=== PATIENT | female | born 2000 | race Caucasian/White ===

== ENCOUNTER 2025-05-31 04:56 | Emergency (ER) | payer OTHER, SELFPAY ==
[2025-05-31 04:57] VITALS: BP 112/78
--- NOTE | 2025-05-31 05:02 | ED.GENMED ---
History of Present Illness
General
Chief Complaint: Abdominal Pain
Source: patient
Exam Limitations: none
Time Seen by Provider: 05/31/25 05:02
Nursing documentation reviewed up to this point in time: agreed with
History of Present Illness
History of Present Illness:
This is a 24 y/o female with no pmh who presents to the ER today with concerns of sudden onset of right sided abdominal pain started at around 3 am this morning. She had one associated episode of vomiting. Patient reports that the pain awoke her
from sleep. She was feeling well prior to going to bed. She had chicken pot pie for dinner which she was able to eat without any difficulty. She has no hx of prior symptoms. Her LMP was one week ago. She denies any flank pain, urinary frequency,
burning with urination, urinary urgency. She denies any fevers, chills, chest pain, shortness of breath, sick contacts, diarrhea, constipation, recent travel outside the country.
Review of Systems
Review of Systems
All Other Systems: ROS reviewed and negative except as documented in HPI and ROS
Phy Exam
General Physical Exam
General Presentation: well appearing
General age: appears stated age
General Skin: warm and dry
General Habitus: normal
General Mental: alert
General Hydration: appears well hydrated
ENT Exam
ENT Exam: EOMI
Cardiovascular Exam
Cardiovascular Exam: regular rate/rhythm and no murmur
Pulmonary Exam
Pulmonary Exam: lungs clear, no respiratory distress, no crackles and no wheezing
Gastrointestinal Exam
Gastrointestinal Exam: normal bowel sounds, soft, non distended and no cva tenderness
Palpation: left upper quadrant: No tenderness, left lower quadrant: Minimal tenderness, right upper quadrant: No tenderness and right lower quadrant: Moderate tenderness
Auscultation of Abdomen: normal
Neurological Exam
Neurological Exam: alert, oriented x3 and CN II-XII intact
Skin Exam
Skin Exam: normal color and warm/dry
Psychiatric Exam
Psychiatric Exam: normal mood/affect
Course
Orders/Labs/Results
Orders:
Orders
05/31/25 05:18
CT Abd/Pel (IV only)-DH only Urgent
Reason For Exam: RLQ pain
Test Result ONCE
05/31/25 05:19
Ondansetron Injectable [Zofran] 4 mg .ROUTE .STK-MED ONE
05/31/25 05:27
Complete Blood Count/With Diff Urgent
Comprehensive Metabolic Panel Urgent
HCG, Serum Qualitative Screen Urgent
Urinalysis Reflex To Culture Urgent
Date Specimen was Collected: 05/31/25
Time Specimen was Collected: 05:21
Urine Microscopic Reflex Cult Urgent
Urine Culture Urgent
CRISTOBAL Source: U
Specimen Description:
Date Specimen was Collected: 05/31/25
Time Specimen was Collected: 05:21
05/31/25 05:28
Ondansetron Injectable [Zofran] 4 mg IV NOW STA
05/31/25 05:31
Ketorolac [Toradol] 15 mg .ROUTE .STK-MED ONE
05/31/25 05:32
Ketorolac [Toradol] 15 mg IV NOW STA
05/31/25 06:35
HYDROmorphone [Dilaudid] 0.5 mg IV NOW STA
05/31/25 06:36
HYDROmorphone [Dilaudid] 0.5 mg .ROUTE .STK-MED ONE
Abnormal Lab Results
05/31/25
05:27
WBC 12.9 H 10^3/uL
(4.8-10.8)
MPV 10.8 H fL
(7.4-10.4)
Abs Immat Gran (auto) 0.1 H 10^3/uL
(0-0.05)
Absolute Neuts (auto) 9.9 H 10^3/uL
(1.4-6.5)
Neutrophils % 76.7 H %
(42.2-75.2)
Lymphocytes % 17.6 L %
(20.5-51.1)
Chloride 109 H mmol/L
(98-107)
BUN 18 H mg/dl
(7-17)
Glucose 134 H mg/dl
(70-99)
Ur Occult Blood Reflex 4+ A
(Negative)
Leukocyte Esterase Rfl 2+ A
(Negative)
Urine RBC 80-90 A /HPF
(0-2)
Urine WBC (Reflex) 11-15 A /HPF
(0-5)
Urine Bacteria (Reflex) Few A
(Negative)
Urine Albumin (Reflex) 2+ A
(Neg - Trace)
05/31/25 05:27
05/31/25 05:27
Vital Signs
Initial and Last Documented VS:
Initial Vital Signs
Pulse Resp BP Pulse Ox
70 24 112/78 100
05/31/25 04:57 05/31/25 04:57 05/31/25 04:57 05/31/25 04:57
Last Documented Vital Signs
Pulse Resp BP Pulse Ox
70 24 120/72 100
05/31/25 04:57 05/31/25 04:57 05/31/25 07:00 05/31/25 07:45
MDM/Problems Addressed
Differential Diagnosis Includes:
ddx include appendicitis, colitis, gastroenteritis, nephrolithiasis
MDM/Problems Addressed:
This is a 24 y/o female with no pmh who presents to the ER today with concerns of sudden onset of right sided abdominal pain started at around 3 am this morning. She associated vomiting as well. She has no history of urinary symptoms with this
illness. On physical exam she is well-appearing nontoxic-appearing, tearful secondary to pain. Pain relief achieved with Toradol and Dilaudid. Labs reviewed, mild leukocytosis noted, mildly elevated glucose. Urinalysis shows occult blood and
white blood cells culture sent. CT scan shows obstructing stone in the right proximal ureter. Discussed home management with pain control and urology follow-up. Discussed strict return precaution and when to return to the ER immediately such as
UTI symptoms, fevers, etc. Patient stable for discharge.
*Pulse Oximetry
SaO2: 100
Oxygen Mode of Delivery: Room air
Patient hypoxic: no
*Critical Care Note
Total Time (30-74mins, 75-104mins- exclusive of procedures): Not Applicable
Update Note
Update Note:
Update, 6:37 AM, patient states that her pain is worsening and patient is tearful, will give dose of Dilaudid, CT scan results pending
ED Attending Note
-
Portions of this chart may have been created with voice recognition software.� Occasional wrong word or��sound alike� substitutions may have occurred due to the inherent limitations of voice recognition software.
Discharge Plan
Departure
Patient Disposition: Home (Routine Discharge)
Date of Disposition: 05/31/25
Time of Disposition: 07:46
Patient with high blood pressure during this ER visit?: No
Condition: Good
Discharge Problem:
Calculus of proximal right ureter
Instructions: Kidney stones in adults, BLOOD PRESSURE
Prescriptions:
New
tamsulosin [Flomax] 0.4 mg capsule
0.4 mg PO DAILY Qty: 5 0RF
ibuprofen 800 mg tablet
800 mg PO Q6H PRN (Reason: Pain) Qty: 14 0RF
ondansetron 4 mg tablet,disintegrating
4 mg PO Q6H PRN (Reason: nausea and vomiting) Qty: 8 0RF
Referrals:
Shane March MD [Active, Urology] - Call in 1-3 days for appt
Sho Pierre MD [Family Provider, Family Practice]
Activity Restrictions/Additional Instructions:
As discussed, please follow-up with your CT scan findings regarding your liver.
You can take 800 mg ibuprofen every 6 hours as needed for pain. Please not exceed 3200 mg/day. You can also take Zofran every 6 hours as needed. May also take 1 tablet of Flomax once daily until stone passage.
Please call the attached number to schedule appointment with urology for follow-up.
PLEASE RETURN TO THE ER IMMEDIATELY SHOULD YOU DEVELOP FEVERS, CHILLS, INCREASING PAIN, BURNING WITH URINATION, PELVIC PAIN, OR ANY OTHER SIGNS OR SYMPTOMS RECENTLY.
Interventions
Interventions:
*Risk Screen - Suicide Last Done: 05/31/25 07:59
*General Assessment Last Done: 05/31/25 05:33
*Neglect/Abuse Screening Last Done: 05/31/25 05:33
*ED- Fall Risk Assessment Last Done: 05/31/25 05:33
*ED COVID-19 Vaccine History Last Done: 05/31/25 05:33
*ED Influenza Vaccine History Last Done: 05/31/25 05:33
*Nursing Disposition Last Done: 05/31/25 07:59
IN-Ygmkol-Hwldlduykk Assessment Last Done: 05/31/25 05:51
Discharge Date and Time
Discharge Date/Time: 05/31/25 07:56
Print Language: SALVADOREAN
[2025-05-31] MEDS: ZOFRAN 4 MG IV (05:28)
[2025-05-31] MEDS: TORADOL 15 MG IV (05:32)
[2025-05-31 05:35] VITALS: BMI 22.8
[2025-05-31 05:39] LABS: Hematocrit 41.4 % (37.0-47.0); Hemoglobin 13.7 g/dL (12.0-16.0); Mean Corp Hgb Conc. 33.1 g/dL (33.0-37.0); Mean Corpuscular Volume 89.6 fL (81.0-99.0); Nucleated Red Blood Cells % 0 %; Platelet Count 220 10^3/uL (130-400); Red Cell Dist. Width 11.8 % (11.5-14.5)
[2025-05-31 05:48] LABS: HCG, Serum Qualitative Screen Negative
[2025-05-31 05:52] LABS: ALT (SGPT) 20 U/L (0-35); AST (SGOT) 23 U/L (14-36); Albumin 4.0 g/dl (3.5-5.0); Alkaline Phosphatase 42 U/L (38-126); Blood Urea Nitrogen 18 mg/dl (7-17); Calcium 8.6 mg/dl (8.4-10.2); Carbon Dioxide 24 mmol/L (22-30); Chloride 109 mmol/L (98-107); Estimated Creatinine Clearance 96 ml/min; Glucose 134 mg/dl (70-99); Potassium 4.4 mmol/L (3.5-5.1); Sodium 138 mmol/L (135-145); Total Protein 6.5 g/dl (6.3-8.2); eGFR > 60.00
[2025-05-31 06:23] LABS: Urine Character Clear (Clear)
[2025-05-31] MEDS: DILAUDID 0.5 MG IV (06:38)
[2025-05-31 06:41] VITALS: BP 123/83
[2025-05-31 07:00] VITALS: BP 120/72
[2025-05-31 07:33] LABS: Urine Red Blood Cell 80-90 /HPF (0-2)
== END 2025-05-31 07:56 | disposition home or self-care (01) ==
LOC: EMR 04:56
PROVIDERS: Physician Assistant; EMERGENCY PHYSICIAN Student in an Organized Health Care Education/Training Program; FAMILY PHYSICIAN Family Medicine
DX: N13.2 Hydronephrosis with renal and ureteral calculous obstruction (principal); R11.10 Vomiting, unspecified
CPT/HCPCS: 99284; 96374; 96375; 74177; 80053; 81003; 81015; 84703; 85025; 87086; Q9967

== ENCOUNTER → 2025-07-05 15:15 | Outpatient (REF) | payer OTHER, SELFPAY | LOC: RAD 15:15 | PROVIDERS: ATTENDING PHYSICIAN Specialist; FAMILY PHYSICIAN Family Medicine | DX: N20.1 Calculus of ureter (principal) | CPT/HCPCS: 76770 ==

== ENCOUNTER 2025-07-26 11:22 | Emergency (ER) | payer OTHER, SELFPAY ==
[2025-07-26 11:32] VITALS: BP 137/67
[2025-07-26 11:53] LABS: Hematocrit 41.8 % (37.0-47.0); Hemoglobin 13.9 g/dL (12.0-16.0); Mean Corp Hgb Conc. 33.3 g/dL (33.0-37.0); Mean Corpuscular Volume 89.7 fL (81.0-99.0); Nucleated Red Blood Cells % 0 %; Platelet Count 230 10^3/uL (130-400); Red Cell Dist. Width 11.6 % (11.5-14.5)
[2025-07-26 12:06] LABS: Urine Character Clear (Clear)
[2025-07-26 12:21] LABS: ALT (SGPT) 18 U/L (0-35); AST (SGOT) 27 U/L (14-36); Albumin 4.4 g/dl (3.5-5.0); Alkaline Phosphatase 49 U/L (38-126); Blood Urea Nitrogen 14 mg/dl (7-17); Calcium 9.4 mg/dl (8.4-10.2); Carbon Dioxide 26 mmol/L (22-30); Chloride 106 mmol/L (98-107); Glucose 85 mg/dl (70-99); Sodium 138 mmol/L (135-145); Total Protein 7.1 g/dl (6.3-8.2); eGFR > 60.00
[2025-07-26 12:30] LABS: Potassium 5.0 mmol/L (3.5-5.1)
[2025-07-26 12:59] LABS: HCG, Serum Qualitative Screen Negative
[2025-07-26] MEDS: NSS 1000 IV (13:02)
[2025-07-26] MEDS: TORADOL 15 MG IV (13:03)
--- NOTE | 2025-07-26 13:03 | ED.GENMED ---
History of Present Illness
<Georgi Cloud Jr., PA-C - Last Filed: 07/28/25 23:11>
General
Chief Complaint: Flank Pain
Source: patient
Exam Limitations: none
Time Seen by Provider: 07/26/25 12:49
Nursing documentation reviewed up to this point in time: agreed with
History of Present Illness
History of Present Illness:
24-year-old female presenting to the emergency department today with concerns of right flank pain described as severe just prior to arrival. Was diagnosed with a kidney stone 2 months ago is unsure if this ever passed. She was initially using the
strainer and Flomax but stopped a few weeks after the initial diagnosis. She was also diagnosed with a UTI 2 weeks ago and took amoxicillin for a week and seem to have resolution of symptoms again. She then was in further discussion with urology,
Dr. Russ the recommended an outpatient CT scan for further assessment to ensure passage of the stone which was scheduled for later this week but symptoms were worsened today which prompted her to come to the ER. She denies any fevers nausea
vomiting.
Review of Systems
<Georgi Cloud Jr., PA-C - Last Filed: 07/28/25 23:11>
Review of Systems
Allergies reviewed?: Yes
All Other Systems: ROS reviewed and negative except as documented in HPI and ROS
Phy Exam
<Georgi Cloud Jr., PA-C - Last Filed: 07/28/25 23:11>
Physical Exam
Physical Exam:
GENERAL: Alert , in no apparent distress
EYE: pupils equal and reactive
NECK: Supple, no significant adenopathy.
ENT: o/p clr, mmm.
CARDIAC: Regular rate and rhythm .
LUNGS: Clear breath sounds bilaterally, no acute respiratory distress, no wheezes/rales/rhonchi
ABDOMEN: Soft, without focal tenderness, no r/g, no cvat
NEUROLOGICAL: Alert and oriented, no focal neuro deficits
SKIN: Warm and dry, skin intact.
MUSCULOSKELETAL: No edema, well perfused.
PSYCH: Normal and appropriate interaction.
Course
<Georgi Cloud Jr., PA-C - Last Filed: 07/28/25 23:11>
Orders/Labs/Results
Orders:
Orders
07/26/25 11:28
CT Abd/pel Without Iv Or Oral Urgent
Comment: known kidney stone
Reason For Exam: right flank pain
Test Result ONCE
07/26/25 11:43
CMP [Comprehensive Metabolic Panel] Urgent
Complete Blood Count/With Diff Urgent
HCG, Serum Qualitative Screen Urgent
07/26/25 11:47
Urinalysis Reflex To Culture Urgent
Date Specimen was Collected: 07/26/25
Time Specimen was Collected: 11:37
Urine Microscopic Reflex Cult Urgent
Urine Culture Urgent
CRISTOBAL Source: U
Specimen Description:
Date Specimen was Collected: 07/26/25
Time Specimen was Collected: 11:37
07/26/25 12:54
0.9% Sodium Chloride 1000 ml [Nss] 1,000 ml IV BOLUS
Ketorolac [Toradol] 15 mg IV NOW STA
Abnormal Lab Results
07/26/25 07/26/25
11:43 11:47
MPV 11.3 H fL
(7.4-10.4)
Ur Occult Blood Reflex 4+ A
(Negative)
Leukocyte Esterase Rfl 1+ A
(Negative)
Urine RBC 7-10 A /HPF
(0-2)
Urine Bacteria (Reflex) Few A
(Negative)
Urine Albumin (Reflex) 2+ A
(Neg - Trace)
07/26/25 11:43
07/26/25 11:43
Vital Signs
Initial and Last Documented VS:
Initial Vital Signs
Temp Pulse Resp BP Pulse Ox
98.3 F 88 18 137/67 99
07/26/25 11:32 07/26/25 11:32 07/26/25 11:32 07/26/25 11:32 07/26/25 11:32
Last Documented Vital Signs
Temp Pulse Resp BP Pulse Ox
98.3 F 77 16 130/79 100
07/26/25 11:32 07/26/25 15:32 07/26/25 15:32 07/26/25 15:32 07/26/25 15:32
<Jolanta Hagan PA-C - Last Filed: 07/28/25 11:47>
Orders/Labs/Results
Orders:
Orders
07/26/25 11:28
CT Abd/pel Without Iv Or Oral Urgent
Comment: known kidney stone
Reason For Exam: right flank pain
Test Result ONCE
07/26/25 11:43
CMP [Comprehensive Metabolic Panel] Urgent
Complete Blood Count/With Diff Urgent
HCG, Serum Qualitative Screen Urgent
07/26/25 11:47
Urinalysis Reflex To Culture Urgent
Date Specimen was Collected: 07/26/25
Time Specimen was Collected: 11:37
Urine Microscopic Reflex Cult Urgent
Urine Culture Urgent
CRISTOBAL Source: U
Specimen Description:
Date Specimen was Collected: 07/26/25
Time Specimen was Collected: 11:37
07/26/25 12:54
0.9% Sodium Chloride 1000 ml [Nss] 1,000 ml IV BOLUS
Ketorolac [Toradol] 15 mg IV NOW STA
Abnormal Lab Results
07/26/25 07/26/25
11:43 11:47
MPV 11.3 H fL
(7.4-10.4)
Ur Occult Blood Reflex 4+ A
(Negative)
Leukocyte Esterase Rfl 1+ A
(Negative)
Urine RBC 7-10 A /HPF
(0-2)
Urine Bacteria (Reflex) Few A
(Negative)
Urine Albumin (Reflex) 2+ A
(Neg - Trace)
07/26/25 11:43
07/26/25 11:43
Vital Signs
Initial and Last Documented VS:
Initial Vital Signs
Temp Pulse Resp BP Pulse Ox
98.3 F 88 18 137/67 99
07/26/25 11:32 07/26/25 11:32 07/26/25 11:32 07/26/25 11:32 07/26/25 11:32
Last Documented Vital Signs
Temp Pulse Resp BP Pulse Ox
98.3 F 77 16 130/79 100
07/26/25 11:32 07/26/25 15:32 07/26/25 15:32 07/26/25 15:32 07/26/25 15:32
<Georgi Cloud Jr., PA-C - Last Filed: 07/28/25 23:11>
MDM/Problems Addressed
MDM/Problems Addressed:
24-year-old female presenting to the emergency department today with concerns of right flank pain described as sharp and acute today. Has improved somewhat prior to my assessment. Recent history of kidney stone as well as infection. CT scan
showing distal 5 mm stone. Case discussed with urology recommending close outpatient follow-up. Return precautions given.
<Georgi Cloud Jr., PA-C - Last Filed: 07/28/25 23:11>
*Pulse Oximetry
SaO2: 99
Oxygen Mode of Delivery: Room air
Patient hypoxic: no (99)
*Critical Care Note
Total Time (30-74mins, 75-104mins- exclusive of procedures): Not Applicable
<Jolanta Hagan PA-C - Last Filed: 07/28/25 11:47>
Update Note
Update Note:
07/28/2025 1147 AM
I called patient regarding her strep Adaline TA urine culture. Patient has a known kidney stone and does not believe she has passed it. She has not had a urologist appointment yet. She has not been able to pick up man the tamsulosin yet. I did
resend that to the pharmacy. She had a round of amoxicillin about 2 weeks ago which did treat some urinary tract infection symptoms but she still having very mild discomfort. Given this I will give her another round of antibiotics Augmentin this
time and recommend that she closely follow-up with urology, return precautions were given. Patient is not having any systemic symptoms or signs of pyelo-
ED Attending Note
<Georgi Cloud Jr., ANGELY - Last Filed: 07/28/25 23:11>
-
Portions of this chart may have been created with voice recognition software.� Occasional wrong word or��sound alike� substitutions may have occurred due to the inherent limitations of voice recognition software.
Discharge Plan
Departure
Patient Disposition: Home (Routine Discharge)
Date of Disposition: 07/26/25
Time of Disposition: 15:16
Patient with high blood pressure during this ER visit?: No
Condition: Good
Covid-19: Not Applicable
Discharge Problem:
Calculus, ureteral
Instructions: Renal Colic (DC)
Prescriptions:
New
tamsulosin 0.4 mg capsule
0.4 mg PO DAILY Qty: 10 0RF
amoxicillin-pot clavulanate 875-125 mg tablet
1 tab PO BID Qty: 14 0RF
No Action
tamsulosin [Flomax] 0.4 mg capsule
0.4 mg PO DAILY Qty: 5 0RF
ibuprofen 800 mg tablet
800 mg PO Q6H PRN (Reason: Pain) Qty: 14 0RF
ondansetron 4 mg tablet,disintegrating
4 mg PO Q6H PRN (Reason: nausea and vomiting) Qty: 8 0RF
Referrals:
Sho Pierre MD [Family Provider, Family Practice]
Ritesh Russ MD [Active, Urology] - Follow up in 1 week
Activity Restrictions/Additional Instructions:
You came to the emergency department today with concerns of ongoing pain. You are found to have a stone at your distal ureter. Please follow closely with urology and take Flomax. He can also take Motrin Tylenol for pain. Return for any
worsening, new or concerning symptoms.
Interventions
Interventions:
*Risk Screen - Suicide Last Done: 07/26/25 11:24
*General Assessment Last Done: 07/26/25 13:06
*Neglect/Abuse Screening Last Done: 07/26/25 13:06
*ED COVID-19 Vaccine History Last Done: 07/26/25 13:06
*ED Influenza Vaccine History Last Done: 07/26/25 13:06
[facility] Fall Risk Assessment Tool Last Done: 07/26/25 13:04
*Nursing Disposition Last Done: 07/26/25 15:32
ZH-Hsyymx-Pesjnvjepi Assessment Last Done: 07/26/25 13:05
ED-Female Genitourinary Assessment Last Done: 07/26/25 13:05
Discharge Date and Time
Discharge Date/Time: 07/26/25 15:32
Print Language: SWEDISH
[2025-07-26 13:05] LABS: Urine Squamous Cell 16-20 /LPF (Few)
[2025-07-26 13:06] LABS: Urine White Cell 0-2 /HPF (0-5)
[2025-07-26 15:32] VITALS: BP 130/79
== END 2025-07-26 15:32 | disposition home or self-care (01) ==
LOC: EMR 11:22
PROVIDERS: EMERGENCY PHYSICIAN Student in an Organized Health Care Education/Training Program; FAMILY PHYSICIAN Family Medicine
DX: N13.6 Pyonephrosis (principal); Z87.440 Personal history of urinary (tract) infections; Z87.442 Personal history of urinary calculi
CPT/HCPCS: 99284; 96374; 96361; 74176; 80053; 81003; 81015; 84703; 85025; 87077; 87086; 87147